=== PATIENT | female | born 1950 | race Caucasian/White ===

== ENCOUNTER 2021-02-28 15:31 | Outpatient (REF) | payer MEDICARE, SELFPAY ==
[2021-02-28 15:52] LABS: COVID-19 Test Positive (Negative)
== END 2021-02-28 15:32 | disposition home or self-care (01) ==
LOC: HO.LAB 15:31
PROVIDERS: Visit Provider Internal Medicine
DX: Z20.822 Contact with and (suspected) exposure to COVID-19 (principal)
CPT/HCPCS: 87635; C9803

== ENCOUNTER 2023-10-29 14:50 | Emergency (ER) | payer OTHER, SELFPAY ==
--- NOTE | ~2023-10-29 | CT_ITS ---
EXAMINATION: CT ANGIOGRAM CHEST CLINICAL INFORMATION: Chest pain. COMPARISON: None available. TECHNIQUE: Multiple axial images were obtained through the chest after the administration of 80 mL of Omnipaque 350 intravenous contrast. Extensive vascular post-processing including two-dimensional and three-dimensional reformatted images were created and reviewed on an independent workstation. This CT examination was performed using dose optimization techniques as appropriate, variously including the following: *Automated exposure control *Adjustment of mA and/or kV according to patient size (this includes techniques or standardized protocols for targeted exams where dose is matched to indication/reason for exam; i.e. extremities or head) *Use of iterative reconstruction technique DLP: 268 mGy-cm FINDINGS: QUALITY OF STUDY/CONTRAST BOLUS: Satisfactory PULMONARY ARTERIES: No pulmonary emboli. THORACIC AORTA: Unremarkable. LUNG: Scarring or subsegmental atelectasis inferior lingula. There is a calcified granuloma left lung base. The lungs are otherwise clear. PLEURA: No pleural effusion or pneumothorax. MEDIASTINUM: Normal heart size. No pericardial effusion. No hilar or mediastinal lymphadenopathy. No evidence of septal bowing or right heart strain. CORONARY ARTERY CALCIFICATION: Mild. CHEST WALL/AXILLA: No axillary or internal mammary lymphadenopathy. OSSEOUS STRUCTURES: Unremarkable. UPPER ABDOMEN: Unremarkable. No reflux of contrast into the hepatic veins to suggest elevated right heart pressures. CT/CT angio chest PE protocol IMPRESSION: 1. No evidence of pulmonary embolism. 2. Scarring or subsegmental atelectasis in the inferior lingula. Calcified granuloma left lung base. 3. Mild coronary artery calcification. 4. VTE: negative. Fleischner guidelines were followed. Electronically signed by: Soren Klein MD 10/30/2023 01:05 AM EDT
--- NOTE | ~2023-10-29 | XR_ITS ---
EXAMINATION: XR CHEST CLINICAL INFORMATION: Chest pain COMPARISON: None available. TECHNIQUE: 2 views of the chest were obtained. FINDINGS: The lungs are adequately expanded. No focal consolidation. No pleural effusions or pneumothorax. The cardiac mediastinal silhouette is within normal limits. Surgical clips projecting over the mediastinum and right chest wall. Degenerative changes of the thoracic spine. XR/XR chest 2V IMPRESSION: No acute pulmonary disease. Electronically signed by: Damion Amanda MD 10/29/2023 04:43 PM EDT
--- NOTE | 2023-10-29 14:54 | ECG_ITS ---
Test Reason : CHEST PAIN Blood Pressure : / mmHG Vent. Rate : 101 BPM Atrial Rate : 101 BPM P-R Int : 126 ms QRS Dur : 072 ms QT Int : 368 ms P-R-T Axes : 027 -17 009 degrees QTc Int : 477 ms Sinus tachycardia with Premature atrial complexes Minimal voltage criteria for LVH, may be normal variant ( R in aVL ) Septal infarct , age undetermined Abnormal ECG No previous ECGs available Referred By: Generic ED Physician Electronically Signed By:ANTON SHEEHAN
[2023-10-29 15:06] VITALS: BP 180/90; PULSE 100; RESP 16; TEMP 36.8; O2SAT 94; BMI 30.4
--- NOTE | 2023-10-29 15:16 | ED.CHESTPAIN ---
HPI - Chest Pain General Chief Complaint: General Medical Stated Complaint: [id number] Time Seen by Provider: 10/29/23 21:52 Source: patient, RN notes reviewed, old records reviewed and spanish interpreter Mode of arrival: ambulatory Limitations: language barrier History of Present Illness ED Provider: Taco SANDOVAL narrative: 73-year-old female presents for evaluation of left-sided chest pain and headache. She reports her symptoms started last night. Patient also endorses a cough but denies sick contacts. She states that she is status post right mastectomy due to breast cancer several years ago Her pain is sharp, constant, 8/10 She is not taking any medications to help alleviate her symptoms. Denies any shortness of breath or palpitations, leg swelling Denies any blurry vision Related Data Allergies Allergy/AdvReac Type Severity Reaction Status Date / Time No Known Allergies Allergy Verified 10/29/23 15:13 Review of Systems Constitutional: Constitutional: Denies body ache(s), Denies chills, Denies fever(s) and Reports headache(s) Eyes: Eyes: Denies blurry vision ENT: Denies vertigo, Denies dizziness and Reports headache(s) Cardiovascular: Cardiovascular: Reports chest pain, Denies syncope, Denies rapid heart rate, Denies leg edema and Denies dyspnea Respiratory: Respiratory: Reports cough and Denies dyspnea Gastrointestinal: Gastrointestinal: Denies abdominal pain, Denies nausea and Denies vomiting Musculoskeletal: Musculoskeletal: Denies back pain Integumentary/Breasts: Skin/Breast: Denies rash Neurologic: Denies vertigo, Denies dizziness, Denies syncope and Reports headache(s) PMFSH Social History Social History Advance Directives: No Advance Directives Information Provided: No Do you have a plan to hurt others: No Plan Physical Exam Vital Signs: Vital Signs: Last Vital Signs Temp 99.6 F 10/29/23 22:00 Pulse 87 10/29/23 22:00 Resp 18 10/29/23 22:00 BP 141/77 H 10/29/23 22:00 Pulse Ox 100 10/29/23 22:00 O2 Del Method Room Air 10/29/23 22:00 BMI result Body Mass Index 30.4 Const: General: healthy appearing, comfortable, no acute distress, alert and awake Nutritional Appearance: well nourished Orientation/consciousness: patient oriented x3 HEENT: Head: Yes normocephalic and Yes atraumatic Eyes: Eyelids: Yes eyelids normal Conjunctivae: conjunctivae normal Sclerae: sclerae normal Corneas: corneas normal Pupils: Equal, round and reactive pupils present EOM: EOMs intact bilaterally Neck: Neck: Yes full ROM Resp: Other: Faint expiratory wheeze heard best in the right middle lobe Effort & Inspection: normal respiratory effort, able to speak in complete sentences and not labored Cardio: Rate: regular rate Rhythm: regular rhythm GI: Inspection: No distended Skin: General skin exam: elasticity normal Neuro: General: patient oriented x3 Cranial nerves: Yes CN's II-XII intact bilaterally, Yes Equal, round and reactive pupils present and Yes Bilaterally intact EOM present Cognition (Neuro): normal cognition Course Course Course Narrative: This is a Rapid Medical Examination (RME) performed by Chapo Vitale PA-C in triage. Full HPI, ROS, assessment and treatment plan per primary provider in the Main ED. 73-year-old female with history of breast cancer status post mastectomy in 2014 who presents to the ER for evaluation of left-sided chest pain and headache that started last night. She also reports mild shortness of breath. Plan: EKG, chest x-ray, lab workup, viral swab Reevaluation(s) Reevaluation #1: Patient's symptoms have resolved after migraine cocktail, her CT angiography study is negative for PE. She is stable for discharge at this time Time: 01:14 Medications Administered Discontinued Medications Generic Name Dose Route Start Last Admin Trade Name Freq PRN Reason Stop Dose Admin Diphenhydramine HCl 25 mg 10/29/23 22:12 10/29/23 23:13 Diphenhydramine Hcl 50 Mg/Ml Vial IVPUSH 10/29/23 22:13 25 mg ONCE ONE Administration Sodium Chloride 1,000 mls @ 999 mls/hr 10/29/23 22:15 10/30/23 00:49 Ns IV 10/29/23 23:15 Infused .Q1H1M JOVANNI Infusion Iohexol 80 ml 10/30/23 00:30 10/30/23 00:30 Iohexol 350 Mg/Ml 100 Ml Infus..Btl IV 10/30/23 00:31 80 ml ONCE ONE Administration Ketorolac Tromethamine 15 mg 10/29/23 22:12 10/29/23 23:13 Ketorolac Tromethamine 15 Mg/Ml Vial IVPUSH 10/29/23 22:13 15 mg ONCE ONE Administration Metoclopramide HCl 10 mg 10/29/23 22:12 10/29/23 23:13 Metoclopramide Hcl 10 Mg/2 Ml Vial IVPUSH 10/29/23 22:13 10 mg ONCE ONE Administration Medical Decision Making Medical Decision Making [facility] Narrative: 73-year-old female presents for evaluation of chest pain, cough and headache. Her workup thus far is unremarkable, troponin is negative despite 24 hours of chest pain. EKG is nonischemic, she has ruled out for ACS. She has no focal neurologic deficits. Less likely CVA. Her temp of 99.8? suggest a possible viral cause of her symptoms, she was negative for COVID, influenza. Her chest x-ray does not show pneumonia. Given her history of breast cancer I did add a D-dimer to evaluate for a possible PE. Her vital signs are currently stable, we will treat her headache with fluids, Toradol, Reglan, Benadryl Differential Diagnosis Differential Diagnoses: The differential diagnosis associated with the presentation includes Chest pain ACS PE Viral syndrome COVID-19 Pneumonia Admission/Observation Consideration of admission/observation: Escalation of care including admission/observation considered Lab Data [facility] Lab Attestation statement: I reviewed the patient's lab results. No leukocytosis or significant anemia. Normal platelet count. No significant electrolyte abnormalities warranting intervention. Patient's glucose is elevated to 171, no evidence of DKA. Troponin is 5.0 10/29/23 15:34 10/29/23 15:34 Labs: Lab Results 10/29/23 10/29/23 10/29/23 Range/Units 15:34 22:39 23:05 WBC 6.8 (4.8-10.8) X10*3/uL RBC 4.16 L (4.20-5.50) X10*6/uL Hgb 12.2 (12.0-16.0) g/dl Hct 35.8 L (37.0-47.0) % MCV 86.1 (80.0-98.0) fL MCH 29.3 (27.0-33.0) pg MCHC 34.1 (31.0-35.0) g/dl RDW 11.2 (11.0-16.0) % Plt Count 238 (160-400) X10*3/uL MPV 9.5 (9.4-12.3) fL Immature Gran % (Auto) 0.7 H (0.0-0.4) % Neut % (Auto) 73.7 H (45-73) % Lymph % (Auto) 15.6 L (20-40) % [place] % (Auto) 7.2 (2-11) % Eos % (Auto) 2.2 (0-4) % Baso % (Auto) 0.6 (0-2) % Lymph # (Auto) 1.1 L (1.2-4.9) X10*3/uL [place] # (Auto) 0.5 (0.1-1.2) X10*3/uL Eos # (Auto) 0.2 (0.0-0.4) X10*3/uL Baso # (Auto) 0.0 (0.0-0.2) X10*3/uL Abs Immat Gran (auto) 0.05 H (0.00-0.03) X10*3/uL Absolute Neuts (auto) 5.0 (2.0-8.3) x10*3/uL Absolute Nucleated RBC 0.000 (0.0-0.012) X10*3/uL Nucleated RBC % (auto) 0.0 (0.0-0.2) /100WBC D-Dimer High Sensitivty 725 NG/ML Sodium 137 (135-145) mmol/L Potassium 4.0 (3.3-5.1) mmol/L Chloride 100 (96-108) mmol/L Carbon Dioxide 26 (22-29) mmol/L Anion Gap 15 (12-20) BUN 8 L (9-16) mg/dL Creatinine 0.92 (0.5-1.4) mg/dL Estim Creat Clear Calc 54.1 Estimated GFR 60 Random Glucose 171 H (60-115) mg/dL Calcium 9.4 (8.4-10.2) mg/dL Magnesium 1.5 L (1.6-2.6) mg/dL Total Bilirubin 0.7 (0.0-1.0) mg/dL Direct Bilirubin 0.2 (0.0-0.5) mg/dL AST 20 (5-31) U/L ALT 15 (0-31) U/L Alkaline Phosphatase 49 (39-117) U/L Troponin I High Sens 5.0 (<3.5-17.0) ng/L Total Protein 7.6 (6.5-8.0) g/dL Albumin 4.1 (3.5-5.0) g/dL Urine Color Yellow Urine Appearance Clear Urine pH 7.0 (5.0-9.0) Ur Specific [place] 1.015 (1.005-1.025) Urine Protein 30 (1+) H (Neg-Trace) mg/dL Urine Glucose (UA) Negative (Negative) mg/dL Urine Ketones 15 (Negative) mg/dL Urine Blood Negative (Negative) Urine Nitrite Negative (Negative) Ur Leukocyte Esterase Negative (Negative) Urine RBC 0-2 (0-2) /HPF Urine WBC 0-5 (0-5) /HPF Ur Squamous Epith Cells 0-2 (0-2) /HPF Urine Bacteria None Seen (None Seen) Hyaline Casts 0-2 (0-2) /LPF Influenza Type A (PCR) NEGATIVE (Negative) Influenza Type B (PCR) NEGATIVE (Negative) RSV RNA Qual (PCR) NEGATIVE (Negative) SARS-CoV-2 RNA (RT-PCR) NEGATIVE (Negative) Independent Interpretation I performed an independent interpretation of an: EKG (Sinus tachycardia with premature atrial complexes. No ST segment elevation or depression. Nondiagnostic EKG), Plain X-Ray and CT Scan (Agree, no large pulmonary embolism) Interpretation: Agree with Radiology interpretation Radiology Impression Discussion of test interpretation with radiology: I have reviewed the radiologist's reading. Radiologist Impression: FINDINGS: The lungs are adequately expanded. No focal consolidation. No pleural effusions or pneumothorax. The cardiac mediastinal silhouette is within normal limits. Surgical clips projecting over the mediastinum and right chest wall. Degenerative changes of the thoracic spine. XR/XR chest 2V IMPRESSION: No acute pulmonary disease CT/CT angio chest PE protocol IMPRESSION: 1. No evidence of pulmonary embolism. 2. Scarring or subsegmental atelectasis in the inferior lingula. Calcified granuloma left lung base. 3. Mild coronary artery calcification. 4. VTE: negative. Discharge Plan Discharge Clinical Impression: Chest pain, Headache Patient Disposition: Home, Self-Care Instructions: Chest Pain (ED), Acute Headache (ED) Additional Instructions: Your workup in the ER today was reassuring. This includes your blood work, EKG, chest x-ray. Your CT scan of your chest was negative for blood clots in your lungs Follow-up with your primary doctor, return for new or worsening symptoms Print Language: Surinamese
[2023-10-29 15:39] LABS: MANUAL DIFF FLAG NO
[2023-10-29 15:40] LABS: Basophils Percent Auto 0.6 % (0-2); Eosinophils Absolute Auto 0.2 X10*3/uL (0.0-0.4); Eosinophils Percent Auto 2.2 % (0-4); Hematocrit 35.8 % (37.0-47.0); Hemoglobin 12.2 g/dl (12.0-16.0); Imm Gran Abs Auto 0.05 X10*3/uL (0.00-0.03); Imm Gran Pct Auto 0.7 % (0.0-0.4); Lymphocytes Absolute Auto 1.1 X10*3/uL (1.2-4.9); Lymphocytes Percent Auto 15.6 % (20-40); Mean Corpuscular HGB Conc 34.1 g/dl (31.0-35.0); Mean Corpuscular Hemoglobin 29.3 pg (27.0-33.0); Mean Corpuscular Volume 86.1 fL (80.0-98.0); Mean Platelet Volume 9.5 fL (9.4-12.3); Monocytes Absolute Auto 0.5 X10*3/uL (0.1-1.2); Monocytes Percent Auto 7.2 % (2-11); Neutrophils Percent Auto 73.7 % (45-73); Platelet Count 238 X10*3/uL (160-400); Red Blood Count 4.16 X10*6/uL (4.20-5.50); Red Cell Distribution Width 11.2 % (11.0-16.0); White Blood Count 6.8 X10*3/uL (4.8-10.8)
[2023-10-29 16:10] LABS: Alanine Aminotransferase 15 U/L (0-31); Albumin Level 4.1 g/dL (3.5-5.0); Alkaline Phosphatase 49 U/L (39-117); Anion Gap 15 (12-20); Aspartate Amino Transferase 20 U/L (5-31); Bilirubin Direct 0.2 mg/dL (0.0-0.5); Bilirubin Total 0.7 mg/dL (0.0-1.0); Blood Urea Nitrogen 8 mg/dL (9-16); Calcium 9.4 mg/dL (8.4-10.2); Carbon Dioxide 26 mmol/L (22-29); Chloride 100 mmol/L (96-108); Creatinine Clr Calc Pharmacy 54.1; Estimated Glomerular Filt Rate 60; Glucose Random 171 mg/dL (60-115); Magnesium 1.5 mg/dL (1.6-2.6); Sodium 137 mmol/L (135-145); Total Protein 7.6 g/dL (6.5-8.0)
[2023-10-29 16:17] LABS: Influenza A PCR NEGATIVE (Negative); Influenza B PCR NEGATIVE (Negative); Resp Syncy Virus RNA Qual PCR NEGATIVE (Negative); SARS COV2 PCR INHOUSE NEGATIVE (Negative)
[2023-10-29 20:00] VITALS: BP 162/90; PULSE 91; RESP 18; TEMP 37.7; O2SAT 95
[2023-10-29 22:00] VITALS: BP 141/77; PULSE 87; RESP 18; TEMP 37.6; O2SAT 100
[2023-10-29 23:02] LABS: D Dimer High Sensitivity 725 NG/ML
[2023-10-29 23:12] LABS: Appearance Urine Clear; Color Urine Yellow; Glucose Urine UA Negative (Negative); Leukocyte Esterase Urine Negative (Negative); Nitrite Urine Negative (Negative); Specific Gravity - Urine 1.015 (1.005-1.025); UMIC TRIGGER UACC YES; Urine Blood Negative (Negative); Urine Ketones 15 mg/dL (Negative); Urine Protein 30 (1+) mg/dL (Neg-Trace)
[2023-10-29] MEDS: Ketorolac Tromethamine 15 MG/ML VIAL IVPUSH (23:13)
[2023-10-29] MEDS: diphenhydrAMINE HCL 50 MG/ML VIAL 25 MG IVPUSH (23:13)
[2023-10-29] MEDS: Metoclopramide HCl 10 MG/2 ML VIAL IVPUSH (23:13)
[2023-10-29] MEDS: 0.9 % Sodium Chloride 1,000 ML 999 ML IV (23:18)
[2023-10-29 23:39] LABS: Bacteria Urine None Seen (None Seen); Hyaline Casts Urine 0-2 /LPF (0-2); RBC Urine 0-2 /HPF (0-2); Squamous Epithelial Cell Urine 0-2 /HPF (0-2); WBC Urine 0-5 /HPF (0-5)
[2023-10-30] MEDS: iohexoL 350 MG/ML 100 ML INFUS..BTL 80 ML IV (00:30)
[2023-10-30 01:28] VITALS: BP 142/69; PULSE 83; RESP 18; TEMP 37.2; O2SAT 96
[2023-10-30 01:30] VITALS: BP 142/69; PULSE 83; RESP 18; TEMP 37.2; O2SAT 96
== END 2023-10-30 01:48 | disposition home or self-care (01) ==
PROVIDERS: Physician Assistant; Emergency Provider Emergency Medicine
DX: R07.9 Chest pain, unspecified (principal); R51.9 Headache, unspecified; Z03.818 Encounter for observation for suspected exposure to other biological agents ruled out; R05.9 Cough, unspecified
CPT/HCPCS: 0241U; 36415; 71046; 71275; 80048; 80076; 81001; 83735; 84484; 85025; 85379; 93005; 96361; 96374; 96375; 99284; 99285; J1200; J1885; J2765; Q9967